=== PATIENT | male | born 1970 | race Caucasian/White ===

== ENCOUNTER → 2019-01-13 | Outpatient (CLI) | payer BC ==
--- NOTE | 2019-01-13 12:04 | XR ---
EXAMINATION TYPE: XR KUB DATE OF EXAM: 01/13/2019 11:56 AM CLINICAL HISTORY: Right-sided flank pain TECHNIQUE: Two supine KUB images of the abdomen are obtained. COMPARISON: Abdominal x-ray April 15, 2009. FINDINGS: Gas is seen in nondistended stomach. Some paucity of small bowel gas. Visualized gas noted in nondistended small bowel loops. Gas and fecal material seen in nondistended colon and rectum. New Cholecystectomy clips are present including displaced clip inferior to right lateral liver margin . Lung bases are clear. Osseous structures are intact.. IMPRESSION: Overall nonobstructive bowel gas pattern. No definitive nephrolithiasis.
== END ==
LOC: RADXRMAIN 11:43
PROVIDERS: ATTEND Urology
DX: N50.811 Right testicular pain (principal); Z87.442 Personal history of urinary calculi
CPT/HCPCS: 74018

== ENCOUNTER → 2019-12-14 | Outpatient (CLI) | payer BC ==
--- NOTE | 2019-12-14 13:23 | CT ---
EXAMINATION TYPE: CT soft tissue neck w con DATE OF EXAM: 12/14/2019 10:23 AM COMPARISON: None HISTORY: Rt neck mass CT DLP: 492.7 mGycm Automated exposure control for dose reduction was used. CONTRAST: CT scan of the neck is performed following with IV Contrast, patient injected with 100 mL of Isovue 3 00. Axial images are obtained, coronal and sagittal reformatted images are reviewed. BB was placed i n patient's reported area of concern. FINDINGS: Airway: No gross abnormality seen. Parotid/submandibular glands: No gross abnormality seen. Carotid/Vascular Structures: Patent. Osseous Structures: No acute osseous abnormality. Other: BB marker is placed on the right submandibular neck, with no evidence of mass, cervical lympha denopathy, focal fluid collection, or skin thickening. There is mucosal thickening of the floor of th e right maxillary sinus. Visualized mastoid air cells are clear. IMPRESSION: No mass, cervical lymphadenopathy, or focal abnormality of the neck.
== END | disposition home or self-care (01) ==
LOC: RADCTMAIN 09:11
PROVIDERS: ATTEND Otolaryngology
DX: R22.1 Localized swelling, mass and lump, neck (principal)
CPT/HCPCS: 70491; Q9967

== ENCOUNTER → 2020-02-03 | Outpatient (CLI) | payer BC ==
--- NOTE | 2020-02-03 18:14 | CT ---
EXAMINATION TYPE: CT urogram wo/w con DATE OF EXAM: 02/03/2020 COMPARISON: None HISTORY: Kidney stones, swollen scrotum CT DLP: 2669.5 mGycm Automated exposure control for dose reduction was used. CONTRAST: Performed without and with IV Contrast, patient injected with 100 mL of Isovue 300. Images obtained from the diaphragm to the floor the pelvis without and subsequently with IV contrast. FINDINGS: The lung bases are clear. There is no pleural effusion. Heart size is normal. Liver spleen stomach pancreas appear normal. Bile ducts are not dilated. There are clips from cholecy stectomy. There is no adrenal mass. There is fusion of the lower poles of both kidneys. There is no e vidence of a solid renal mass. There is 2 mm calcification at the medial aspect of the right renal pe lvis. There is no hydronephrosis. Delayed images show normal renal excretion. Ureters are not dilated . There appears to be bilateral ureteral jets in the urinary bladder. There is no inguinal hernia. Th ere is no ascites. There is no sign of free air. There is no evidence of a bowel obstruction. There is no mesenteric edema. There is no evidence of a thickened appendix. Appendix not definitely s een. Lumbar vertebra have normal alignment. Posterior elements are intact. There is no compression fractur e. Disc spaces are fairly normal. There is small prosthetic calcification. The bony pelvis is intact. The hip joints are intact. IMPRESSION: Small right-sided renal calculus. No evidence of renal obstruction. Normal renal function. Horseshoe kidney. No sign of acute abdomen and pelvis.
== END | disposition home or self-care (01) ==
LOC: RADCTMAIN 15:39
PROVIDERS: ATTEND Urology
DX: N20.0 Calculus of kidney (principal); Q63.1 Lobulated, fused and horseshoe kidney
CPT/HCPCS: 74178; 74400; Q9967

== ENCOUNTER → 2020-08-24 | Outpatient (CLI) | payer BC ==
--- NOTE | 2020-08-24 16:27 | XR ---
EXAMINATION TYPE: XR KUB DATE OF EXAM: 08/24/2020 11:21 AM CLINICAL HISTORY: Right renal pain TECHNIQUE: Single supine KUB image of the abdomen is obtained. COMPARISON: 01/13/2019. FINDINGS: Scattered gas is seen in non-distended small bowel loops. Gas and fecal material is seen in non-distended colon. There is a 4 mm punctate density overlying the lower pole of the right renal sh adow, possibly representing nephrolithiasis. Surgical clips are present in the right upper abdomen. IMPRESSION: Right nephrolithiasis.
--- NOTE | 2020-08-26 10:34 | P.GSHP ---
History of Present Illness H&P Date: 08/26/20 50 yo male with a horseshoe kidney and a history of stones. He has had rt flank and upper quadrant pain for the last several days. He has a 6 mm stone in the right upj and an 8mm stone in the llp. He has been given treatment options He comes for eswl right - Constitutional Constitutional: Denies chills, Denies fever - EENT Eyes: denies blurred vision, denies pain Ears, nose, mouth and throat: Denies headache, Denies sore throat - Cardiovascular Cardiovascular: Denies chest pain, Denies shortness of breath - Respiratory Respiratory: Denies cough, Denies 7 - Gastrointestinal Gastrointestinal: Denies abdominal pain, Denies diarrhea, Denies nausea, Denies vomiting - Genitourinary (Female) Genitourinary: Denies dysuria, Denies hematuria - Genitourinary (Male) Genitourinary: Denies dysuria, Denies hematuria - Musculoskeletal Musculoskeletal: Denies myalgias - Integumentary Integumentary: Denies pruritus, Denies rash - Neurological Neurological: Denies numbness, Denies weakness - Psychiatric Psychiatric: Denies anxiety, Denies depression - Endocrine Endocrine: Denies fatigue, Denies weight change Past Medical History Past Medical History: GERD/Reflux, Hypertension, Mitral Valve Prolapse (MVP) Additional Past Medical History / Comment(s): KIDNEY STONES X8 History of Any Multi-Drug Resistant Organisms: None Reported Past Surgical History: Hernia Repair Additional Past Surgical History / Comment(s): LITHOTRIPSY,CYSTOSCOPY,DEVIATED SEPTUM Past Anesthesia/Blood Transfusion Reactions: Postoperative Nausea & Vomiting (PONV) Past Psychological History: No Psychological Hx Reported Past Alcohol Use History: Occasional Past Drug Use History: None Reported Medications and Allergies Home Medications Medication Instructions Recorded Confirmed Type Esomeprazole Magnesium [NexIUM 20 mg PO DAILY 04/21/14 05/14/14 History 24Hr] Metoprolol Succinate [Toprol XL] 50 mg PO DAILY 04/21/14 05/14/14 History HYDROcodone/APAP 7.5-325MG [Amistad 1 each PO Q4H PRN #60 tab 05/14/14 Rx 7.5] Allergies Allergy/AdvReac Type Severity Reaction Status Date / Time No Known Allergies Allergy Verified 05/12/14 11:54 Surgical - Exam - General well nourished - Eyes PERRL - ENT no hearing loss - Neck trachea midline - Respiratory normal expansion, normal respiratory effort - Cardiovascular Rhythm: regular - Abdomen Abdomen: soft, non tender - Genitourinary normal penis with no external lesions - Integumentary no growths - Neurologic normal coordination, normal sensation - Musculoskeletal normal posture - Psychiatric oriented to time, oriented to person, oriented to place, speech is normal, memory intact Results - Imaging Abdominal x-ray: report reviewed, image reviewed CT scan - abdomen: report reviewed, image reviewed CT scan - pelvis: report reviewed, image reviewed Assessment and Plan Assessment: Impression: Right renal stone, symptomatic. Horseshoe kidney Plan: ESWL right
== END | disposition home or self-care (01) ==
LOC: RADXRMAIN 11:02
PROVIDERS: ATTEND Urology
DX: N20.0 Calculus of kidney (principal)
CPT/HCPCS: 74018

== ENCOUNTER → 2020-08-26 | Outpatient (CLI) | payer BC ==
[2020-08-26 10:37] LABS: Basophils # (A) 0.1 k/uL (0-0.2); Basophils % (A) 1 %; Eosinophils # (A) 0.1 k/uL (0-0.7); Eosinophils % (A) 1 %; HCT 47.5 % (39.0-53.0); HGB 16.7 gm/dL (13.0-17.5); Lymphocytes # (A) 1.7 k/uL (1.0-4.8); Lymphocytes % (A) 23 %; MCH 31.1 pg (25.0-35.0); MCHC 35.2 g/dL (31.0-37.0); MCV 88.3 fL (80.0-100.0); Mean Platelet Volume 7.3; Monocytes # (A) 0.5 k/uL (0-1.0); Monocytes % (A) 7 %; Neutrophils # (A) 4.8 k/uL (1.3-7.7); Neutrophils % (A) 66 %; Platelet Count 213 k/uL (150-450); RBC 5.38 m/uL (4.30-5.90); RDW 12.9 % (11.5-15.5); WBC 7.3 k/uL (3.8-10.6)
[2020-08-26 10:50] LABS: African American GFR (CKD) >90 (>60 ml/min/1.73 sqM); Anion Gap 5 mmol/L; Blood Urea Nitrogen 12 mg/dL (9-20); Carbon Dioxide 33 mmol/L (22-30); Chloride 102 mmol/L (98-107); Non-African American GFR(CKD) >90 (>60 ml/min/1.73 sqM); Potassium 4.3 mmol/L (3.5-5.1); Sodium 140 mmol/L (137-145)
== END | disposition home or self-care (01) ==
LOC: LABPAT 09:46
PROVIDERS: ATTEND Urology
DX: Z01.812 Encounter for preprocedural laboratory examination (principal); N20.0 Calculus of kidney
CPT/HCPCS: 36415; 80051; 82565; 84520; 85025

== ENCOUNTER 2020-08-29 06:56 | Day surgery (SDC) | payer BC ==
[2020-08-26 10:46] VITALS: BMI 30.9
--- NOTE | 2020-08-29 07:51 | XR ---
EXAMINATION TYPE: XR KUB DATE OF EXAM: 08/29/2020 7:10 AM CLINICAL HISTORY: Preoperative kidney stones TECHNIQUE: Single supine KUB image of the abdomen is obtained. COMPARISON: 08/24/2020. FINDINGS: Scattered gas is seen in non-distended small bowel loops. Gas and fecal material is seen in non-distended colon. The renal shadows are obscured by bowel contents. A calcification in the pelvis is unchanged and is most consistent with a phlebolith. Clips are noted in the right upper abdomen. IMPRESSION: Overall nonobstructive bowel gas pattern. The renal shadows are obscured by bowel contents.
[2020-08-29 07:56] VITALS: TEMP 97.8
[2020-08-29] MEDS ORDERED: LIDOCAINE 1% (10MG/ML) FOR IV START INTRADERMA ONE (08:17)
[2020-08-29] MEDS ORDERED: LACTATED RINGERS 1,000 ML IV ONE (08:18)
[2020-08-29] MEDS ORDERED: PROPOFOL 10 MG/ML 20 ML VIAL IV ONE (08:37)
[2020-08-29] MEDS ORDERED: fentaNYL (PF) 50 MCG/ML 2 ML AMP ONE (08:37)
[2020-08-29] MEDS ORDERED: MIDAZOLAM 2 MG/2 ML VIAL ONE (08:37)
[2020-08-29] MEDS ORDERED: LIDOCAINE 1% INJ 10MG/ML (20 ML MDV) ONE (08:37)
--- NOTE | 2020-08-29 09:28 | P.OP ---
Date of Procedure: 08/29/20 Preoperative Diagnosis: Left ureteral calculus Postoperative Diagnosis: Same Procedure(s) Performed: Left extracorporal shockwave lithotripsy (ESWL) Anesthesia: MAC Surgeon: Pete Andrade Estimated Blood Loss (ml): 0 IV fluids (ml): 350 Pathology: none sent Condition: stable Disposition: PACU Indications for Procedure: 50 yo male with a horseshoe kidney and a history of stones. He has had right flank and upper quadrant pain recently. A computed tomography scan shows a 6 mm right UPJ calculus and an 8 mm calculus on the left side. It is difficult to determine whether the left-sided calculus is within the proximal ureter or the lower pole. The former is more likely, and over the weekend his pain has been more left-sided than right-sided. The preoperative KUB x-ray does not show the right UPJ calculus with certainty. Following a lengthy discussion with the patient and his , it was decided that left ESWL would be performed if the right UPJ calculus could not be seen on fluoroscopy. Operative Findings: Excellent fragmentation. Description of Procedure: The patient was taken to the operating room and placed on the Dornier Compact Delta II lithotripter in the supine position. Fluoroscopy was performed, but the right UPJ calculus could not be seen. Therefore, the patient was repositioned in the left proximal ureteral calculus was seen on biplanar fluoroscopy. Once the patient was properly positioned and sedated, lithotripsy was performed. The energy level was gradually increased per protocol, to an energy level of 4. After 200 shocks were administered, a 2 minute pause was instituted per protocol. A total of shocks were given at a rate of 80 shocks per minute. Fluoroscopy was utilized at a minimum to ensure proper positioning and determine the treatment status. The calculus fragmented early in the procedure, and could vaguely be seen at the completion of the procedure. The patient tolerated the procedure well was taken to the recovery room in stable condition. Instructions were given to strain the urine, and the patient will follow-up within one week.
[2020-08-29 09:30] VITALS: RESP 16
[2020-08-29 09:42] VITALS: BP 123/85; PULSE 70
== END 2020-08-29 10:19 | disposition home or self-care (01) ==
LOC: ORWHC2ENDO 06:56
PROVIDERS: ATTEND Urology
DX: N20.2 Calculus of kidney with calculus of ureter (principal); Q63.1 Lobulated, fused and horseshoe kidney
CPT/HCPCS: 50590; 74018; J2250; J2001; J3010; J2704

== ENCOUNTER → 2020-09-05 | Outpatient (CLI) | payer BC ==
--- NOTE | 2020-09-05 18:42 | XR ---
EXAMINATION TYPE: XR KUB DATE OF EXAM: 09/05/2020 Comparison: 08/29/2020 Clinical History: 50-year-old male N20.1 Findings: Nonobstructive bowel gas pattern. Cholecystectomy clips. Mild overall stool. Phlebolith in the left s hoang of the pelvis is unchanged. Previous calcific density projecting over the left L4 transverse proc ess is no longer seen. Renal shadows largely obscured by bowel content. Impression: No clearly identifiable suspicious renal calculus.
== END | disposition home or self-care (01) ==
LOC: RADXRMAIN 10:57
PROVIDERS: ATTEND Urology
DX: Z03.89 Encounter for observation for other suspected diseases and conditions ruled out (principal); Z90.49 Acquired absence of other specified parts of digestive tract
CPT/HCPCS: 74018

== ENCOUNTER → 2020-10-13 | Outpatient (CLI) | payer BC ==
--- NOTE | 2020-10-13 13:00 | US ---
EXAMINATION TYPE: US thyroid st tissue head/neck DATE OF EXAM: 10/13/2020 COMPARISON: NONE CLINICAL HISTORY: E07.9 Disorder of thyroid, unspecified. Warren's GLAND SIZE: Right Lobe: 4.9 x 1.6 x 2.1 cm Overall Parenchyma: heterogenous Left Lobe: 6.1 x 1.5 x 2.1 cm Overall Parenchyma: heterogeneous Isthmus Thickness: 1.3 cm NODULES RIGHT: # of nodules measured on right: 0 LEFT: # of nodules measured on left: 0 ISTHMUS: # of nodules measured in the isthmus: 0 Bilateral neck scanned, no evidence of lymphadenopathy. IMPRESSION: Mild thyromegaly
== END | disposition home or self-care (01) ==
LOC: RADUSWWP 12:15
PROVIDERS: ATTEND Family Medicine
DX: E01.0 Iodine-deficiency related diffuse (endemic) goiter (principal)
CPT/HCPCS: 76536

== ENCOUNTER → 2020-10-24 | Outpatient (CLI) | payer BC ==
[2020-10-24 13:35] LABS: Basophils # (A) 0.1 k/uL (0-0.2); Basophils % (A) 1 %; Eosinophils # (A) 0.1 k/uL (0-0.7); Eosinophils % (A) 1 %; HCT 46.9 % (39.0-53.0); HGB 16.5 gm/dL (13.0-17.5); Lymphocytes % (A) 22 %; MCH 31.6 pg (25.0-35.0); MCHC 35.1 g/dL (31.0-37.0); MCV 90.2 fL (80.0-100.0); Mean Platelet Volume 7.6; Monocytes # (A) 0.5 k/uL (0-1.0); Monocytes % (A) 6 %; Neutrophils % (A) 68 %; Platelet Count 218 k/uL (150-450); RDW 13.3 % (11.5-15.5); WBC 8.8 k/uL (3.8-10.6)
[2020-10-24 13:53] LABS: Appearance,Urine Clear (Clear); Bilirubin,Urine Negative (Negative); Blood,Urine Small (Negative); Color,Urine Yellow; Glucose,Urine (UA) Negative (Negative); Ketones,Urine Negative (Negative); Leukocyte Esterase,Urine Negative (Negative); Mucus,Urine Rare /hpf; Nitrite,Urine Negative (Negative); Protein,Urine Negative (Negative); RBC,Urine 4 /hpf (0-5); Specific Gravity,Urine 1.011 (1.001-1.035); Urobilinogen,Urine <2.0 mg/dL (<2.0); WBC,Urine <1 /hpf (0-5)
[2020-10-24 13:54] LABS: African American GFR (CKD) >90 (>60 ml/min/1.73 sqM); Anion Gap 8 mmol/L; Blood Urea Nitrogen 11 mg/dL (9-20); Carbon Dioxide 28 mmol/L (22-30); Chloride 103 mmol/L (98-107); Non-African American GFR(CKD) >90 (>60 ml/min/1.73 sqM); Potassium 3.9 mmol/L (3.5-5.1); Sodium 139 mmol/L (137-145)
== END | disposition home or self-care (01) ==
LOC: LABPAT 12:48
PROVIDERS: ATTEND Urology
DX: Z01.812 Encounter for preprocedural laboratory examination (principal); N20.0 Calculus of kidney; R31.29 Other microscopic hematuria
CPT/HCPCS: 36415; 80051; 81001; 82565; 84520; 85025

== ENCOUNTER 2020-10-31 10:26 | Day surgery (SDC) | payer BC ==
[2020-10-26 14:11] VITALS: BMI 30.9
--- NOTE | 2020-10-30 18:45 | P.GSHP ---
History of Present Illness H&P Date: 10/30/20 50 yo male with a horseshoe kidney and kidney stone disease. He recently underwent eswl left with fragmentation and stone passage. He has a 5 mm painful rt lower pole stone and comes for eswl right. the risks complications and alternatives have been discussed. - Constitutional Constitutional: Denies chills, Denies fever - EENT Eyes: denies blurred vision, denies pain Ears, nose, mouth and throat: Denies headache, Denies sore throat - Cardiovascular Cardiovascular: Denies chest pain, Denies shortness of breath - Respiratory Respiratory: Denies cough, Denies 7 - Gastrointestinal Gastrointestinal: Denies abdominal pain, Denies diarrhea, Denies nausea, Denies vomiting - Genitourinary (Female) Genitourinary: Denies dysuria, Denies hematuria - Genitourinary (Male) Genitourinary: Denies dysuria, Denies hematuria - Musculoskeletal Musculoskeletal: Denies myalgias - Integumentary Integumentary: Denies pruritus, Denies rash - Neurological Neurological: Denies numbness, Denies weakness - Psychiatric Psychiatric: Denies anxiety, Denies depression - Endocrine Endocrine: Denies fatigue, Denies weight change Past Medical History Past Medical History: GERD/Reflux, Hypertension, Mitral Valve Prolapse (MVP) Additional Past Medical History / Comment(s): KIDNEY STONES X9. COVID 06/01. Horseshoe kidney History of Any Multi-Drug Resistant Organisms: None Reported Past Surgical History: Cholecystectomy, Hernia Repair Additional Past Surgical History / Comment(s): LITHOTRIPSY, CYSTOSCOPY,DEVIATED SEPTUM Past Anesthesia/Blood Transfusion Reactions: Postoperative Nausea & Vomiting (PONV) Smoking Status: Never smoker - Past Family History Mother Family Medical History: No Reported History Medications and Allergies Home Medications Medication Instructions Recorded Confirmed Type Metoprolol Succinate [Toprol XL] 50 mg PO DAILY 04/21/14 10/26/20 History Cholestyramine (with Sugar) 1 dose PO DAILY 08/26/20 10/26/20 History [Questran Packet] Omeprazole 20 mg PO DAILY 10/26/20 10/26/20 History Allergies Allergy/AdvReac Type Severity Reaction Status Date / Time ciprofloxacin [From Cipro] Allergy Nausea & Verified 10/26/20 14:02 Vomiting Surgical - Exam - General well developed, well nourished, no distress - Eyes PERRL - ENT no hearing loss - Neck trachea midline - Respiratory normal expansion, normal respiratory effort - Cardiovascular Rhythm: regular - Abdomen Abdomen: soft, non tender - Genitourinary normal penis with no external lesions, testicles present - Integumentary no rash, no growths - Neurologic normal coordination, normal sensation - Musculoskeletal normal gait, normal posture - Psychiatric oriented to time, oriented to person, oriented to place, speech is normal, memory intact Results - Imaging Abdominal x-ray: report reviewed, image reviewed CT scan - abdomen: report reviewed, image reviewed CT scan - pelvis: report reviewed, image reviewed Assessment and Plan Assessment: Impression: Painful right renal stone in a horseshoe kidney Plan: esw right
[~2020-10-31 10:26] MED LIST: HYDROmorphone 0.5 MG/0.5 ML SYRINGE IVP PRN; LACTATED RINGERS 1,000 ML IV SCH; MIDAZOLAM 2 MG/2 ML VIAL IV PRN
[2020-10-31] MEDS ORDERED: ONDANSETRON 4 MG/2 ML VIAL ONE (10:49)
[2020-10-31 10:51] VITALS: TEMP 98
[2020-10-31] MEDS ORDERED: LACTATED RINGERS 1,000 ML IV ONE (10:52)
--- NOTE | 2020-10-31 10:54 | XR ---
EXAMINATION TYPE: XR KUB DATE OF EXAM: 10/31/2020 HISTORY: Pain Comparison: 09/05/2020 Single KUB is submitted for interpretation. Findings: Right renal calculi: 4 mm mid pole calculus right kidney. Right ureteral calculi: None Visualized. Left renal calculi: Vague 4 mm calculus just inferior to the left L3 transverse process. Left ureteral calculi: None Visualized. Pelvic calcifications: Stable pelvic calcifications. Bowel gas pattern is unremarkable. No free air. No mass effects. IMPRESSION: 1. As above
[2020-10-31] MEDS ORDERED: PROPOFOL 10 MG/ML 20 ML VIAL IV ONE (11:08)
[2020-10-31] MEDS ORDERED: MIDAZOLAM 2 MG/2 ML VIAL ONE (11:08)
[2020-10-31] MEDS ORDERED: fentaNYL (PF) 50 MCG/ML 2 ML AMP ONE (11:08)
--- NOTE | 2020-10-31 11:42 | P.OP ---
Date of Procedure: 10/31/20 Preoperative Diagnosis: Right renal stone Postoperative Diagnosis: Bilateral renal stones Procedure(s) Performed: Bilateral ESWL, 400 shocks right at energy level IV, 500 shocks left at energy level IV Anesthesia: MAC Surgeon: Nasim Cardozo Estimated Blood Loss (ml): 0 Pathology: none sent Condition: stable Disposition: PACU Indications for Procedure: The patient is 50. He has a horseshoe kidney. He is kidney stone disease. Shockwave lithotripsy to a left renal stone a few weeks back. There is still a 4 mm fragment in the left lower pole calyx. He has a 4 mm stone in the right middle pole calyx. He comes for yesterday alright. He has complained a left- sided pain in the last week. He has chronic right-sided pain. Description of Procedure: Patient is placed in the lithotripsy table. The right-sided stone was seen in 2 views of fluoroscopy. 400 shocks at energy level IV administered the stone totally disappears. Because of the brief number shocks required to break the stone I will treat the left side up. The table was repositioned. The stone was seen in 2 views of fluoroscopy. 500 shocks were given the left side. The stone appears to fracture into smaller fragments. The procedure is terminated. The patient is awake and returned recovery in good condition. Patellar procedure well be discharged home upon recovery.
[2020-10-31] MEDS ORDERED: HYDROcodone/APAP 5-325MG 1 EACH TAB ONE (11:56)
[2020-10-31] MEDS ORDERED: HYDROcodone/APAP 5-325MG 1 EACH TAB PO ONE (12:05)
[2020-10-31 12:06] VITALS: RESP 16
[2020-10-31 13:06] VITALS: BP 126/76; PULSE 64
== END 2020-10-31 13:00 | disposition home or self-care (01) ==
LOC: ORWHC2ENDO 10:26
PROVIDERS: ATTEND Urology
DX: N20.0 Calculus of kidney (principal); Q63.1 Lobulated, fused and horseshoe kidney
CPT/HCPCS: 50590; 74018; J2250; J2405; J3010; J2704

== ENCOUNTER → 2020-11-07 | Outpatient (CLI) | payer BC ==
--- NOTE | 2020-11-07 12:53 | XR ---
EXAMINATION TYPE: XR KUB DATE OF EXAM: 11/07/2020 COMPARISON: 10/31/2020 HISTORY: Renal calculi TECHNIQUE: AP abdomen FINDINGS: Stable phlebolith is within the left hemipelvis. A right renal stone is not identified on t he current examination. The left ureteral stone is not identified at the L3 level. However, a punctat e calcification may be present overlying the left L4 transverse process measuring 0.3 cm. IMPRESSION: 1. There may be some progression of a left ureteral stone measuring 0.3 cm now overlying the left L4 transverse process
== END | disposition home or self-care (01) ==
LOC: RADXRMAIN 09:47
PROVIDERS: ATTEND Urology
DX: N20.0 Calculus of kidney (principal)
CPT/HCPCS: 74018

== ENCOUNTER → 2021-08-21 | Outpatient (CLI) | payer BC | END | disposition home or self-care (01) | LOC: LABWHC1 10:20 | PROVIDERS: ATTEND Otolaryngology | DX: J30.89 Other allergic rhinitis (principal) | CPT/HCPCS: 36415 ==

== ENCOUNTER → 2022-01-23 | Outpatient (CLI) | payer BC ==
--- NOTE | 2022-01-23 08:48 | CT ---
EXAMINATION TYPE: CT cervical spine wo con DATE OF EXAM: 01/23/2022 COMPARISON: NONE HISTORY: Choking sensation, mandibular pain and right ear pain x2 years. CT DLP: 509.3 mGycm. Automated Exposure Control for Dose Reduction was Utilized. TECHNIQUE: CT scan of the cervical spine is obtained without contrast, axial images are obtained, sa gittal and coronal reformatted images are also reviewed. FINDINGS: Cervical spine is visualized in its entirety from C1 through upper thoracic levels, demonst rates straightened alignment without evidence of acute fracture or dislocation. Prevertebral soft ti ssue appears within normal limits. The C1-C2 articulation is within normal limits on the coronal amy ges. Vertebral body heights are maintained. There is mild to moderate disc space narrowing and mixer pigment ior spurring at C5-C6 level. There is moderate disc space narrowing and spurring at C6-C7 level. Spur disc complexes efface the anterior thecal sac at these levels on sagittal and axial images. Axia l images also show broad-based right paracentral disc protrusion mildly effacing right anterolateral thecal sac on axial image 48. There is moderate bilateral neural foraminal narrowing at C5-C6 level a nd moderate left-sided neural foraminal narrowing at C6-C7 level on axial images. Thyroid gland appea rs within normal limits. Lung apices show no pneumothorax. Scattered prominent but subcentimeter lymp h nodes are seen throughout the neck bilaterally. IMPRESSION: Straightening of cervical spine with multilevel degenerative changes as detailed above.
== END | disposition home or self-care (01) ==
LOC: RADCTMAIN 07:24
PROVIDERS: ATTEND Family Medicine
DX: M47.22 Other spondylosis with radiculopathy, cervical region (principal); M48.02 Spinal stenosis, cervical region; M99.71 Connective tissue and disc stenosis of intervertebral foramina of cervical region
CPT/HCPCS: 72125

== ENCOUNTER → 2022-07-24 | Outpatient (CLI) | payer BC ==
--- NOTE | 2022-07-24 14:45 | CT ---
EXAMINATION TYPE: CT angio head neck DATE OF EXAM: 07/24/2022 COMPARISON: None HISTORY: 52-year-old male I72.9 Dizziness, right ear popping and left ear ringing, and jaw pain. TECHNIQUE: Initial noncontrast CT of the head with coronal and sagittal reconstructions. Subsequent s eliud of the head and neck performed with IV Contrast, patient injected with 65ml mL of Isovue 370. Coronal/sagittal MIP reconstructions performed. CT DLP: 1574.4 mGycm Automated exposure control for dose reduction was used. FINDINGS: CT head: Mild bifrontal cerebral volume loss. No evidence for acute intracranial hemorrhage, acute ischemic change, mass, mass effect, midline shif t, or extra-axial fluid collection. No hydrocephalus. No effacement of cerebral sulci or basal subara chnoid cisterns. [place]-white matter differentiation is maintained. Paranasal sinuses and mastoid air cells well pneumatized. Orbits and globes are intact. CTA NECK: Conventional arch was a branching anatomy. The vertebral arteries are codominant and patent throughout their course. The right common and internal carotid arteries are widely patent. The left common and left internal carotid arteries are widely patent. NASCET criteria is utilized. CTA HEAD: The vertebral and basilar arteries as well as the remainder of the posterior circulation is patent. Dural venous sinuses are patent. The internal carotid arteries and remainder of the anterior circulation is patent. The A2 segment rig ht anterior cerebral artery is hypoplastic. No aneurysmal change is identified. IMPRESSION: 1. HEAD: MILD BIFRONTAL CEREBRAL ATROPHY. NO ACUTE INTRACRANIAL ABNORMALITY SEEN. 2. CTA NECK: WIDELY PATENT CAROTID AND VERTEBRAL ARTERIES OF THE NECK. 3. CTA HEAD: NO LARGE VESSEL INTRACRANIAL ARTERIAL OCCLUSION, SIGNIFICANT STENOSIS, OR ANEURYSMAL NYLA NGE IS SEEN.
== END | disposition home or self-care (01) ==
LOC: RADCTMAIN 08:58
PROVIDERS: ATTEND Family Medicine
DX: G31.9 Degenerative disease of nervous system, unspecified (principal); I72.9 Aneurysm of unspecified site
CPT/HCPCS: 70496; 70498; Q9967